=== PATIENT | male | born 1950 | race African-American/Black ===

== ENCOUNTER 2022-11-07 16:52 | Emergency (ER) | payer MEDICARE | END 2022-11-07 19:24 | disposition home or self-care (01) | LOC: ERS 16:52 | DX: T82.838A Hemorrhage due to vascular prosthetic devices, implants and grafts, initial encounter (principal); E11.9 Type 2 diabetes mellitus without complications; Z99.2 Dependence on renal dialysis | CPT/HCPCS: 99283 ==